=== PATIENT | male | born 1955 | race Caucasian/White ===

== ENCOUNTER 2016-09-14 18:02 | Inpatient (IN) | payer OTHER ==
[~2016-09-14] VITALS: Ht 170.2 cm; Wt 108.6 kg
[~2016-09-14 18:02] MED LIST: 378 PO; ABILIFY2 MG PO; ADV250/50 INH; ATROVENT H0.017 MG/A IH; CELEXA20 MG PO; COZ25 PO; COZ50; COZ50 PO; DEEP SEA; DOXYCYCLINE PO; EC NAPROSYN500 MG PO; ECOTRIN81 M1 PO; ED BACLOFEN10 MG PO; FENOFIBRATE54 M1 PO; FLUOXETINE20 M2 PO; GLU500; HYD25 PO; HYDROCHLOROTHIA25 MG PO; HYDROCODONE BIT1 T45 PO; IPRATROPIUM BROM3 M2 HHN; ISO10 PO; K10 PO; KEFLEX500 MG PO; L40 PO; LEV500 PO; LEVAQUIN750 MG PO; LORAZEPAM1 PO; LOSARTAN POTAS100 M1 PO; LOSARTAN POTAS100 MG PO; LOVASTATIN40 M1 PO; MET10 PO; METFORMIN ER500 M1 PO; METFORMIN500 MG PO; METHADONE10 MG PO; METOPROLOL25 MG PO; NEU300 PO; NIC21 TD; NORCO PO; PAX20 PO; PENTOXIFYL XR400 M1; PRE1 PO; PRED-PAK 455 MG PO; PREDNICOT20 MG PO; PREDNISONE PO; PRI20 PO; PRO-AIR INHALER INH; PRO10 PO; RES7 PO; ROB500 PO; TRAMADOL HCL50 M PO; TRAMADOL50 MG PO; TRE400 PO; UREA 40% TOP; VOL50 PO; ZOC20 PO; [UNRECOGNIZED DRUG - OTHER] INH
[2016-09-14 21:01] LABS: BASOPHIL % 0.7 % (0-2); PLATELET COUNT 248 x10^3mcL (130-400); RED CELL DISTRIBUTION WIDTH 14.4 % (11.5-14.5)
[2016-09-14 21:08] LABS: CALCIUM 8.2 mg/dL (8.5-10.1); CARBON DIOXIDE 27.2 mmol/L (21-32); CHLORIDE SERUM 101 mmol/L (98-107); CREATININE SERUM 1.1 mg/dL (0.7-1.3); GFR1 > 60 mL/min; GLUCOSE SERUM 132 mg/dL (74-106); POTASSIUM SERUM 3.5 mmol/L (3.5-5.1); SODIUM SERUM 137 mmol/L (136-145)
[2016-09-14 21:12] LABS: ALKALINE PHOSPHATASE 82 U/L (46-116); ALT/SGPT 21 U/L (16-63); AST/SGOT 20 U/L (15-37); BILIRUBIN TOTAL 0.35 mg/dL (0.20-1.00); TOTAL PROTEIN, SERUM 7.9 g/dL (6.4-8.2)
--- NOTE | 2016-09-14 22:21 | NUR ---
PT RESTING IN BED, NO DISTRESS NOTED, RESP EVEN AND UNLABORED, ON FULL CM.
--- NOTE | 2016-09-14 22:26 | NUR ---
REPORT GIVEN TO AUGIE LEE TO ASSUME CARE OF PT.
--- NOTE | 2016-09-14 22:37 | NUR ---
WOUND TO R BICEP WITH BLEEDING AND DRAINAGE FROM CENTER OF ABSCESS. WOUND CULTURE COLLECTED AND SENT TO LAB. PT TENDER TO ABSCESS AREA. REDNESS EXTENDING FROM MID BICEP TO JUST DISTAL TO R AC, RED AREA IS TENDER AND WARM TO TOUCH.
--- NOTE | 2016-09-14 23:00 | NUR ---
PT A&OX4,NO ACUTE DISTRESS NOTED, RESP EVEN AND UNLABORED, TRANSFERRED TO TELE BED 240B VIA [place] ON , WITH MYSELF, CORETTA LEE AND EMT LAWRENCE AT PT SIDE AT TIME OF TRANSFER. PT TRANSFERRED TO TELE BED WITH ASSISTANCE FROM [facility] AND [facility]. PT TRANSFERRED WITHOUT INCIDENCE.
[2016-09-14 23:19] VITALS: BP 105/70
--- NOTE | 2016-09-14 23:23 | NUR ---
REC'D AAOX4, SPEECH CLEAR. DENIES DIZZINES AND H/A, C/O PAIN IN LEGS AND BACK, STATES IS NON-AMBULATORY, PERSONAL W/C AT BEDSIDE. ON RA, NO SOB NOTED. NOTED RIGHT ARM WOUND, PHOTO DOCUMENTED. ATTACHED TELE 10, NSR. IV SITE WNL. PT STATES DRANK ALCOHOL BEFORE ADMISSION. ORIENTED TO ROOM AND SURROUNDINGS. CALL LIGHT WITHIN REACH, PROVIDED REPORT TO ELSA LEE FOR CONTINUITY OF CARE.
[2016-09-14 23:35] LABS: CHOLESTEROL/HDL RATIO 4.5; MAGNESIUM 2.1 mg/dL (1.8-2.4); PHOSPHOROUS 2.9 mg/dL (2.5-4.9)
[2016-09-14 23:41] LABS: T3 TOTAL 0.94 ng/mL
[2016-09-14 23:58] LABS: FREE T4 1.13 ng/dL (0.76-1.46); T4(THYROXINE) 8.2 ug/dL (4.7-13.3)
--- NOTE | 2016-09-15 01:00 | NUR ---
URINE SPECIMEN COLLECTED FOR UA/CS AND SENT TO LAB. PAIN LEVEL 2/10, BEARABLE AT THIS TIME. PLACED CALL LIGHT WITHIN REACH. CONTINUE TO MONITOR.
[2016-09-15 01:23] LABS: microscopic required? NO
[2016-09-15 01:30] LABS: UA SPECIFIC GRAVITY 1.015 (1.005-1.035); urine erythrocyte NEGATIVE (NEGATIVE)
[2016-09-15 01:40] LABS: AMPHETAMINE QUAL UR POSITIVE (NEG <=1000)
[2016-09-15 02:00] VITALS: BP 105/70
--- NOTE | 2016-09-15 05:25 | NUR ---
DR AKINS AT PT'S BEDSIDE, CALLING MY ATTENTION , PER MD PATIENT JUST INJECTED HIMNSELF WITH HEROIN AND PUT A HEROIN TABLET IN HIS MOUTH, 0.3CC SYRINGE WAS AON THE FLOOR AND DR AKINS DISPOSED IT AT THE [employer] CON[employer], CHARGE NURSE MADE AWARE/PARK RECREATION MANAGER WAS NOTIFIED. DUE ATB IVPB GIVEN ORDERED FOR MAANAGEMENT OF RA ABSCEES. NO ADVERSE REACTION NOTED. ALL NEEDS ATTENDED.
--- NOTE | 2016-09-15 05:30 | NUR ---
DR. AKINS INFORMED ME THAT HE SAW THE PATIENT WITH A SYRINGE UNDER HIS ELBOW ON THE TRAY TABLE. PER DR. AKINS, HE ASKED THE PATIENT IF IT WAS HIS AND WHAT IT IS, PER DR. AKINS, PT TOLD HIM THAT IT WAS HIS AND IT WAS HEROINE. PER DR. AKINS, HE INFORMED THE PATIENT THAT HE COULD NOT KEEP HEROIN IN THE HOSPITAL WITH HIM AND THE PATIENT TOLD THE DOCTOR THAT HE KNOWS IT AND THAT THE DOCTOR IS NOT GOING TO TAKE IT. PER DR. AKINS, HE SAW PT SPRAYED THE CONTENTS OF THE SYRINGE ON HIS TONGUE AND THEN THREW IT ON THE FLOOR. PER DR. AKINS, HE THEN PICKED UP THE SYRINGE AND DISCARDED IN THE SHARP CONTAINER. PT TOLD ME THAT HE DOESNT HAVE ANY OTHER DRUGS WITH HIM. ONLINE TRADER BEBO NOTIFIED AND INSTRUCTED TO CALL RAYMUNDO SOLANO. RAYMUNDO SOLANO NOTIFIED AND SPOKEN WITH DISPATCHER PEPE AND TOLD ME THAT THERES NOTHING THEY CAN DO UNLESS IT IS ON PATIENTS POSSESSION WITH ACTUAL DRUG. ADY ONLINE TRADER MADE AWARE AND DR. AKINS MADE AWARE. SECURITY EZEQUIEL ELLIOTT IN THE PATIENTS ROOM WITH FELICIA CHATMAN AND WENT THROUGH PATIENTS 3 BAGS, NO DRUGS FOUND. ADY BECK MADE AWARE. 0605. ADY TALKED TO DR. AKINS AND THE PATIENT.
[2016-09-15 06:11] VITALS: BP 145/93
--- NOTE | 2016-09-15 07:15 | NUR ---
RESTING IN BED, DROWSY, RESPONDS TO VERBAL COMMANDS, REPORTS FEELING "SLEEPY AND TIRED" RIGHT ARM CHAIN DYER WITH ERYTHEMATOUS ABSCESS, LEFT HAND IV INFUSING NS AT 100ML/HR, USV/A & ARM COMPLETED, REINSTRUCTED ON SAFETY PRECAUTIONS, CALL LIGHT WITHIN REACH, WILL CONTINUE TO PROVIDE CARE.
--- NOTE | 2016-09-15 09:12 | NUR ---
ABLE TO TAKE ALL PO MEDS WITHOUT GI DISTRESS, C/O STEWART 07/21, WILL PROVIDE PAIN MED ORDERED. ROUNDS WITH DR PRADHAN AND MEDICAL TEAM, UPDATED PT ON CURRENT POC.
[2016-09-15 09:23] VITALS: BP 130/76
[2016-09-15 12:57] VITALS: BP 146/88
--- NOTE | 2016-09-15 14:28 | NUR ---
SITTING UP IN BED, DENIES DISCOMFORT AT THIS TIME. ABSCESS WITHOUT DRAINAGE, WARRANTS NO SURGICAL INTERVENTION BY DR TAYLOR.
[2016-09-15 17:40] VITALS: BP 154/101
--- NOTE | 2016-09-15 19:19 | NUR ---
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
--- NOTE | 2016-09-15 19:35 | NUR ---
PT IS AAOX4. PT DENIES ANY PAIN AT THIS TIME. PT IS ON 3L NC SATING 96% THERE IS SOME WHEEZING IN THE RIGHT LUNG. NO ACUTE DISTRESS NOTED. THE PT HAS ACTIVE BOWEL SOUNDS AND IS ON TELE 10 WITH NSR, HR 93 CURRENTLY. THERE IS AN IV IN THE LH INFUSING 100 ML/HR NS. BED IS IN LOWEST POSITION, WILL CONTINUE TO MONITOR.
--- NOTE | 2016-09-15 20:44 | NUR ---
240-B BED NO LONGER WORKS. CHARGE NURSE AWARE. MOVED TO 240-A. WILL CONTINUE TO MONITOR.
--- NOTE | 2016-09-15 20:49 | NUR ---
LAB CALLED ABOUT REPEATED UDS AND BLOOD ALCHOHOL ORDER. DR. VOGT AWARE, TOLD HE WILL DC BOTH.
[2016-09-15 21:14] VITALS: BP 138/85
--- NOTE | 2016-09-15 22:42 | NUR ---
PAGEGATED DR. VOGT ABOUT DIET ORDER
--- NOTE | 2016-09-16 06:13 | NUR ---
PT IS SLEEPING COMFORTABLY IN BED CURRENTLY. WHENEVER I ENTER THE ROOM AND THE PT WAKES UP, THE PT REQUESTS FOR PAIN MEDICATIONS, WHEN I LEAVE THE ROOM, THE PT QUICKLY FALLS BACK ASLEEP. BED IN LOWEST POSITION. ALL NEEDS HAVE BEEN MET THROUGHOUT THE NIGHT. WILL ENDORSE TO MORNING SHIFT.
[2016-09-16 06:16] VITALS: BP 148/87
--- NOTE | 2016-09-16 07:20 | NUR ---
AAOX4 ABLE TO VERBALIZE NEEDS WITH CLEAR SPEECH, RUE RUBINA, ERYTHEMATOUS, C/O PAIN 03/23, CONTROLLED AT THIS TIME, REPORTS X1 LOOSE BM, IS ON LACTULOSE FOR ELEVATED AMMONIA LEVELS, IV AT LEFT HAND INFUSING NS AT 100ML/HR, TRANSFERS SELF TO AND FROM WHEELCHAIR, REORIENTED TO [place]OMA ND CALL LIGHT, REINFORCED SAFETY POLICIES AND PRECAUTIONS, CALL LIGHT WITHIN REACH, WILL CONTINUE TO PROVIDE CARE.
[2016-09-16 07:56] LABS: BASOPHIL % 1.1 % (0-2); PLATELET COUNT 195 x10^3mcL (130-400)
[2016-09-16 08:32] LABS: CALCIUM 8.2 mg/dL (8.5-10.1); CARBON DIOXIDE 27.3 mmol/L (21-32); CHLORIDE SERUM 105 mmol/L (98-107); CREATININE SERUM 1.1 mg/dL (0.7-1.3); GFR1 > 60 mL/min; GLUCOSE SERUM 134 mg/dL (74-106); PHOSPHOROUS 3.1 mg/dL (2.5-4.9); SODIUM SERUM 135 mmol/L (136-145)
[2016-09-16 09:00] VITALS: BP 148/90
--- NOTE | 2016-09-16 09:05 | NUR ---
REFUSED DOSE OF COLACE AND LACTULOSE, EDUCATION, RISKS AND BENEFITS EXPLAINED, VERBALIZED UNDERSTANDING. C/O LEFT HAND TINGLING, REPORTS HX OF ELBOW TRAUMA, UPON ASSESSMENT, CAP REFILL < 3SECONDS, WARM TO TOUCH, FLEXION AND EXTENTION WNL, STATES "IT WILL RESOLVE ON ITS OWN" CALL LIGHT WITHIN REACH, WILL CONTINUE TO PROVIDE CARE.
--- NOTE | 2016-09-16 13:10 | NUR ---
C/O "BURNING SENSATION" TO LEFT HAND, APPLIED ICEPACK, ELEVATED ON PILLOW, WILL CONTINUE TO MONITOR CLOSELY FOR SAFETY AND COMFORT.
[2016-09-16 13:11] VITALS: BP 105/66
--- NOTE | 2016-09-16 15:15 | NUR ---
PATIENT STATES HE IS A "HEROIN ADDICT AND NEEDS TO LEAVE THE HOSPITAL NOW" REFUSED DOSE OF IV ANTIBIOTIC ZOSYN, EDUCATION ON ADDICTION SUPPORT OFFERED, PATIENT DECLINED. PATIENT REQUESTING TO "SIGN HIMSELF OUT OF THE HOSPITAL," DR ZACHARY BROWN.
--- NOTE | 2016-09-16 15:30 | NUR ---
PT REQUESTED TO LEAVE AMA. DR SHARMA SPOKE WITH PT REGARDING THE RISKS OF LEAVING AMA. PT VOLUNATARILY SIGNED AMA FORM. WITNESSED BY PRIMARY NURSE DEANDRE. CHARGE NURSE AWARE. TELE MONITOR AND IV REMOVED.
--- NOTE | 2016-09-16 15:35 | NUR ---
IV D/C'D BY RESOURCE JES[facility] CERRATO.
== END 2016-09-16 15:39 | disposition left against medical advice (07) | DRG 383 ==
LOC: ED 18:02 → DU 22:01
PROVIDERS: Emergency Medicine; Student in an Organized Health Care Education/Training Program; ADMIT Family Medicine
DX: L02.413 Cutaneous abscess of right upper limb (principal); D68.69 Other thrombophilia; E44.0 Moderate protein-calorie malnutrition; K72.90 Hepatic failure, unspecified without coma; E87.1 Hypo-osmolality and hyponatremia; E11.9 Type 2 diabetes mellitus without complications; J44.9 Chronic obstructive pulmonary disease, unspecified; F11.10 Opioid abuse, uncomplicated; E78.5 Hyperlipidemia, unspecified; F41.8 Other specified anxiety disorders; B18.2 Chronic viral hepatitis C; E66.9 Obesity, unspecified; Z68.37 Body mass index [BMI] 37.0-37.9, adult; F17.210 Nicotine dependence, cigarettes, uncomplicated
CPT/HCPCS: 82962; 83880; 84439; 99406; G0480; J0696; J2270; J2405; J2543; J3010; J3490; J7030; Q0092

== ENCOUNTER 2017-02-24 03:47 | Inpatient (IN) | payer OTHER ==
[~2017-02-24] VITALS: Ht 170.2 cm; Wt 101.7 kg
[2017-02-24 05:44] LABS: BASOPHIL % 0.5 % (0-2); PLATELET COUNT 263 x10^3mcL (130-400)
[2017-02-24 05:50] LABS: CALCIUM 8.1 mg/dL (8.5-10.1); CARBON DIOXIDE 30.6 mmol/L (21-32); CHLORIDE SERUM 100 mmol/L (98-107); CREATININE SERUM 1.3 mg/dL (0.7-1.3); GFR1 59 mL/min; GLUCOSE SERUM 126 mg/dL (74-106); POTASSIUM SERUM 4.7 mmol/L (3.5-5.1); SODIUM SERUM 138 mmol/L (136-145)
[2017-02-24 05:55] LABS: ALKALINE PHOSPHATASE 72 U/L (46-116); ALT/SGPT 443 U/L (16-63); AST/SGOT 717 U/L (15-37); BILIRUBIN TOTAL 0.9 mg/dL (0.20-1.00); TOTAL PROTEIN, SERUM 7.1 g/dL (6.4-8.2)
[2017-02-24 06:04] LABS: ALBUMIN 3.1 g/dL (3.4-5.0)
[2017-02-24 08:59] LABS: MAGNESIUM 2.4 mg/dL (1.8-2.4); PHOSPHOROUS 3.1 mg/dL (2.5-4.9)
[2017-02-24 09:09] LABS: FREE T4 1.2 ng/dL (0.76-1.46); FREE THYROXINE INDEX 2.4 ug/dL (1.4-4.5); T4(THYROXINE) 6.4 ug/dL (4.7-13.3)
[2017-02-24 09:18] LABS: CHOLESTEROL/HDL RATIO 3.6
[2017-02-24 09:37] LABS: T3 TOTAL 0.87 ng/mL
[2017-02-24 10:38] VITALS: BP 129/90
[2017-02-24 11:04] LABS: UA SPECIFIC GRAVITY 1.025 (1.005-1.035); microscopic required? YES; urine erythrocyte TRACE (NEGATIVE)
[2017-02-24 11:26] LABS: AMPHETAMINE QUAL UR POSITIVE (NEG <=1000)
[2017-02-24 13:30] VITALS: BP 121/84
[2017-02-24 16:14] VITALS: BP 121/84
[2017-02-24 17:05] VITALS: BP 99/72
[2017-02-24 17:55] VITALS: BP 99/72
[2017-02-24 20:48] VITALS: BP 122/79
[2017-02-25 05:30] VITALS: BP 133/94
[2017-02-25 10:07] VITALS: BP 139/94
[2017-02-25 14:37] VITALS: BP 159/68
[2017-02-25 15:23] LABS: BASOPHIL % 1.3 % (0-2); PLATELET COUNT 162 x10^3mcL (130-400)
[2017-02-25 15:38] LABS: CALCIUM 8.7 mg/dL (8.5-10.1); CARBON DIOXIDE 31.1 mmol/L (21-32); CHLORIDE SERUM 100 mmol/L (98-107); CREATININE SERUM 1.1 mg/dL (0.7-1.3); GFR1 > 60 mL/min; GLUCOSE SERUM 138 mg/dL (74-106); MAGNESIUM 2.4 mg/dL (1.8-2.4); POTASSIUM SERUM 4.5 mmol/L (3.5-5.1); SODIUM SERUM 138 mmol/L (136-145)
[2017-02-25] MEDS ORDERED: LEVAQUIN750 MG PO (16:33)
[2017-02-25] MEDS ORDERED: COR3 PO (16:34)
[2017-02-25] MEDS ORDERED: CLEOCIN HCL300 MG PO (16:34)
[2017-02-25] MEDS ORDERED: LASIX20 MG PO (16:35)
[2017-02-25] MEDS ORDERED: ZES10 PO (16:35)
[2017-02-25] MEDS ORDERED: LAC PO (16:37)
[2017-02-25] MEDS ORDERED: METFORMIN HCL500 MG PO (16:43)
[2017-02-25] MEDS ORDERED: BLOOD GLUCOSE1 EACH MC (16:43)
[2017-02-25] MEDS ORDERED: ACCU-CHEK1 EACH MC (16:43)
[2017-02-25 16:56] VITALS: BP 159/68
== END 2017-02-25 17:43 | disposition home or self-care (01) | DRG 137 ==
LOC: ED 03:47 → DU 07:33
PROVIDERS: Emergency Medicine; Student in an Organized Health Care Education/Training Program
DX: J69.0 Pneumonitis due to inhalation of food and vomit (principal); N17.0 Acute kidney failure with tubular necrosis; I50.43 Acute on chronic combined systolic (congestive) and diastolic (congestive) heart failure; I11.0 Hypertensive heart disease with heart failure; R73.03 Prediabetes; I73.9 Peripheral vascular disease, unspecified; B19.20 Unspecified viral hepatitis C without hepatic coma; F17.210 Nicotine dependence, cigarettes, uncomplicated; F15.129 Other stimulant abuse with intoxication, unspecified; F11.20 Opioid dependence, uncomplicated; Z59.0 Homelessness
CPT/HCPCS: 83880; 84439; 87804; G0480; J1956; J2405; J3490; J7030; J7620

== ENCOUNTER 2017-08-31 18:17 | Inpatient (IN) | payer OTHER ==
[~2017-08-31] VITALS: Ht 172.7 cm; Wt 96.0 kg
[~2017-08-31 18:17] MED LIST changes: +ACCU-CHEK1 EACH MC; +BLOOD GLUCOSE1 EACH MC; +CLEOCIN HCL300 MG PO; +COR3 PO; +LAC PO; +LASIX20 MG PO; +METFORMIN HCL500 MG PO; +ZES10 PO
[2017-08-31 18:34] VITALS: Ht 172.7 cm; Wt 96.0 kg
[2017-08-31 20:54] LABS: PLATELET COUNT 220 x10^3mcL (130-400)
[2017-08-31 21:02] LABS: RED CELL DISTRIBUTION WIDTH 23.6 % (11.5-14.5)
[2017-08-31 21:12] LABS: CALCIUM 7.3 mg/dL (8.5-10.1); CARBON DIOXIDE 25.7 mmol/L (21-32); CREATININE SERUM 1.3 mg/dL (0.7-1.3); POTASSIUM SERUM 3.9 mmol/L (3.5-5.1)
[2017-08-31 21:17] LABS: BILIRUBIN TOTAL 0.8 mg/dL (0.20-1.00)
[2017-08-31 21:18] LABS: ALBUMIN 1.9 g/dL (3.4-5.0); TOTAL PROTEIN, SERUM 5.3 g/dL (6.4-8.2)
[2017-08-31 22:08] LABS: BAND NEUTROPHIL 0 % (0-10); BASOPHIL 0 % (0-2); MONOCYTE 2 % (0-7); SEGMENTED NEUTROPHILS 91 % (37-75)
[2017-08-31 22:12] LABS: rbc morphology (normal/abnorm) ABNORMAL (NORMAL)
[2017-08-31 22:13] LABS: ovalocyte/elliptocyte 1+; target cell (codocyte) 1+
[2017-08-31 22:16] LABS: burr cell (echinocyte) 1+
[2017-08-31 22:18] LABS: PLATELET MORPHOLOGY PLATELETS NORMAL
[2017-09-01] VITALS (7 sets, daily range): BP systolic 91–102; BP diastolic 56–73
[2017-09-01 02:45] LABS: MAGNESIUM 1.6 mg/dL (1.8-2.4); PHOSPHOROUS 3.2 mg/dL (2.5-4.9)
[2017-09-01 03:05] LABS: CHOLESTEROL/HDL RATIO 8.3
[2017-09-01 07:24] LABS: microscopic required? YES; urine erythrocyte NEGATIVE (NEGATIVE)
[2017-09-01 08:07] LABS: AMPHETAMINE QUAL UR POSITIVE (See below)
[2017-09-01 10:36] LABS: BASOPHIL % 0.2 % (0-2); PLATELET COUNT 177 x10^3mcL (130-400)
[2017-09-01 10:41] LABS: RED CELL DISTRIBUTION WIDTH 22.7 % (11.5-14.5)
[2017-09-01 10:42] LABS: rbc morphology (normal/abnorm) ABNORMAL (NORMAL)
[2017-09-01 10:50] LABS: CALCIUM 7.5 mg/dL (8.5-10.1); CARBON DIOXIDE 22.8 mmol/L (21-32); CHLORIDE SERUM 103 mmol/L (98-107); CREATININE SERUM 1.2 mg/dL (0.7-1.3); GFR1 > 60 mL/min; GLUCOSE SERUM 112 mg/dL (74-106); POTASSIUM SERUM 3.5 mmol/L (3.5-5.1); SODIUM SERUM 131 mmol/L (136-145)
[2017-09-02 05:44] VITALS: BP 88/55
[2017-09-02 07:05] LABS: ALKALINE PHOSPHATASE 62 U/L (46-116); ALT/SGPT 14 U/L (16-63); AMYLASE 34 U/L (25-115); AST/SGOT 16 U/L (15-37); BILIRUBIN TOTAL 0.5 mg/dL (0.20-1.00); CALCIUM 6.5 mg/dL (8.5-10.1); CHLORIDE SERUM 106 mmol/L (98-107); CREATININE SERUM 1.2 mg/dL (0.7-1.3); GFR1 > 60 mL/min; GLUCOSE SERUM 99 mg/dL (74-106); LIPASE 229 IU/L (73-393); MAGNESIUM 1.7 mg/dL (1.8-2.4); POTASSIUM SERUM 3.9 mmol/L (3.5-5.1); SODIUM SERUM 137 mmol/L (136-145)
[2017-09-02 07:14] LABS: ALBUMIN 1.4 g/dL (3.4-5.0); TOTAL PROTEIN, SERUM 4.6 g/dL (6.4-8.2)
[2017-09-02 07:25] LABS: BASOPHIL % 0.5 % (0-2); PLATELET COUNT 162 x10^3mcL (130-400); RED CELL DISTRIBUTION WIDTH 23.4 % (11.5-14.5)
[2017-09-02 10:17] VITALS: BP 86/53
[2017-09-02 11:10] LABS: rbc morphology (normal/abnorm) ABNORMAL (NORMAL)
[2017-09-02 11:11] LABS: ovalocyte/elliptocyte 1+
[2017-09-02 14:06] VITALS: BP 90/59
[2017-09-02 17:28] VITALS: BP 92/59
[2017-09-02 21:47] VITALS: BP 90/56
[2017-09-03 05:15] VITALS: BP 86/58
[2017-09-03 09:07] VITALS: BP 98/58
[2017-09-03 11:01] LABS: CALCIUM 6.4 mg/dL (8.5-10.1); CARBON DIOXIDE 28.1 mmol/L (21-32); CREATININE SERUM 1.3 mg/dL (0.7-1.3); MAGNESIUM 1.5 mg/dL (1.8-2.4); POTASSIUM SERUM 4.1 mmol/L (3.5-5.1)
[2017-09-03 11:11] LABS: PHOSPHOROUS 3.2 mg/dL (2.5-4.9)
[2017-09-03 11:16] LABS: BASOPHIL % 0.9 % (0-2); PLATELET COUNT 165 x10^3mcL (130-400)
[2017-09-03 11:17] LABS: RED CELL DISTRIBUTION WIDTH 23.3 % (11.5-14.5)
[2017-09-03 12:25] VITALS: BP 100/67
[2017-09-03 21:37] VITALS: BP 95/57
[2017-09-04 06:20] VITALS: BP 91/63
[2017-09-04 06:57] LABS: BASOPHIL % 0.5 % (0-2); PLATELET COUNT 193 x10^3mcL (130-400)
[2017-09-04 07:16] LABS: CALCIUM 7.5 mg/dL (8.5-10.1); CARBON DIOXIDE 24.4 mmol/L (21-32); CREATININE SERUM 1.5 mg/dL (0.7-1.3); MAGNESIUM 1.7 mg/dL (1.8-2.4); PHOSPHOROUS 3.4 mg/dL (2.5-4.9); POTASSIUM SERUM 4.8 mmol/L (3.5-5.1)
[2017-09-04 08:41] LABS: RED CELL DISTRIBUTION WIDTH 22.9 % (11.5-14.5)
[2017-09-04 08:42] LABS: rbc morphology (normal/abnorm) ABNORMAL (NORMAL)
[2017-09-04 09:24] VITALS: BP 99/71
== END 2017-09-04 13:26 | disposition left against medical advice (07) | DRG 720 ==
LOC: ED 18:17 → IC 09-01 00:34 → DU 09-01 00:34 → IC 09-01 00:48 → DU 09-01 22:26
PROVIDERS: Emergency Medicine; Internal Medicine
DX: A41.9 Sepsis, unspecified organism (principal); G93.41 Metabolic encephalopathy; I50.43 Acute on chronic combined systolic (congestive) and diastolic (congestive) heart failure; E43 Unspecified severe protein-calorie malnutrition; L89.323 Pressure ulcer of left buttock, stage 3; E11.51 Type 2 diabetes mellitus with diabetic peripheral angiopathy without gangrene; E87.1 Hypo-osmolality and hyponatremia; B37.49 Other urogenital candidiasis; E11.621 Type 2 diabetes mellitus with foot ulcer; I11.0 Hypertensive heart disease with heart failure; E11.622 Type 2 diabetes mellitus with other skin ulcer; I83.222 Varicose veins of left lower extremity with both ulcer of calf and inflammation; I83.212 Varicose veins of right lower extremity with both ulcer of calf and inflammation; L97.221 Non-pressure chronic ulcer of left calf limited to breakdown of skin; L97.211 Non-pressure chronic ulcer of right calf limited to breakdown of skin; L97.821 Non-pressure chronic ulcer of other part of left lower leg limited to breakdown of skin; L97.521 Non-pressure chronic ulcer of other part of left foot limited to breakdown of skin; L97.321 Non-pressure chronic ulcer of left ankle limited to breakdown of skin; L97.311 Non-pressure chronic ulcer of right ankle limited to breakdown of skin; E83.42 Hypomagnesemia; L03.314 Cellulitis of groin; L03.116 Cellulitis of left lower limb; R65.20 Severe sepsis without septic shock; L03.115 Cellulitis of right lower limb; B96.5 Pseudomonas (aeruginosa) (mallei) (pseudomallei) as the cause of diseases classified elsewhere; N20.0 Calculus of kidney; J44.9 Chronic obstructive pulmonary disease, unspecified; E78.5 Hyperlipidemia, unspecified; F32.9 Major depressive disorder, single episode, unspecified; J98.11 Atelectasis; F41.9 Anxiety disorder, unspecified; F11.10 Opioid abuse, uncomplicated; F17.210 Nicotine dependence, cigarettes, uncomplicated; Z68.27 Body mass index [BMI] 27.0-27.9, adult; Z79.84 Long term (current) use of oral hypoglycemic drugs; Z96.652 Presence of left artificial knee joint; Z99.3 Dependence on wheelchair; Z59.0 Homelessness
CPT/HCPCS: 83880; 97110-GP; C9113; G0480; J0295; J0696; J1580; J1644; J1885; J2270; J2543; J3370; J3411; J3420; J3490; J7030; J7040; J7042; J7050; J7620; Q0092; Q9967